=== PATIENT | female | born 2000 | race Caucasian/White ===

== ENCOUNTER 2019-07-29 06:48 | Emergency (ER) | payer OTHER ==
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
[2019-07-29] MEDS ORDERED: BABY ASPIRIN 81 MG CHEW PO ONE (08:51)
[2019-07-29] MEDS ORDERED: BABY ASPIRIN 81 MG CHEW ONE (09:16)
[2019-07-29 09:21] LABS: ALBUMIN 4.4 g/dL (3.5-5.0); ALKALINE PHOSPHATASE 80 U/L (38-126); AMYLASE 43 U/L (30-110); ANION GAP 13.4 MEQ/L (5-15); BLOOD UREA NITROGEN 12 mg/dL (7-17); CHLORIDE 104 mmol/L (98-107); Calcium 9.4 mg/dL (8.4-10.2); Carbon Dioxide 27 mmol/L (22-30); Creatinine 1 0.74 mg/dL (0.52-1.04); Glucose 89 mg/dL (74-106); LIPASE 63 U/L (23-300); Potassium 3.2 mmol/L (3.5-5.1); SGOT/AST 27 U/L (14-36); SGPT/ALT 26 U/L (0-35); SODIUM 141 mmol/L (137-145); Total Protein 7.7 g/dL (6.3-8.2)
[2019-07-29 09:40] LABS: Hematocrit 43.2 % (35-47); Hemoglobin 14.6 gm/dl (12.0-16.0); Mean Cell Volume 83.9 fl (78-100); Mean Corpuscular Hemoglobin 28.3 pg (26-32); Mean Corpuscular Hgb Concent. 33.8 g/dl (32-36); Mean Platelet Volume 13.3 fl (7.5-11.0); Platelet Count 287 K/mm3 (150-450); Red Blood Count 5.15 M/mm3 (4.1-5.4); Red Cell Distribution Width 14.5 % (11.5-14.0); White Blood Count 9.4 K/mm3 (4.0-10.5)
[2019-07-29 10:05] VITALS: O2SAT 100
[2019-07-29 10:08] LABS: Barbiturate,Urine NEGATIVE (NEGATIVE); Benzodiazepine,Urine POSITIVE (NEGATIVE); Cocaine,Urine NEGATIVE (NEGATIVE); Methadone,Urine NEGATIVE (NEGATIVE); Opiate,Urine NEGATIVE (NEGATIVE); PCP,Urine NEGATIVE (NEGATIVE); THC,Urine POSITIVE (NEGATIVE)
[2019-07-29 10:08] LABS: INFLUENZA A NEGATIVE (NEGATIVE); INFLUENZA B NEGATIVE (NEGATIVE); RESPIRATORY SYNCTIAL VIRUS NEGATIVE (Negative)
[2019-07-29 10:09] LABS: Appearance CLOUDY (CLEAR); Bacteria RARE /HPF (NEGATIVE); Bilirubin NEGATIVE (NEGATIVE); Blood NEGATIVE Ery/ul (0-5); Epithelial Cells FEW /HPF (FEW); Glucose NEGATIVE (NEGATIVE); Ketones SMALL (NEGATIVE); Leukocyte Esterase SMALL (NEGATIVE); Mucus MANY /HPF (NEGATIVE); Nitrite NEGATIVE (NEGATIVE); Protein,Urine Dip 30 (Negative); Specific Gravity 1.031 (1.005-1.025); Urobilinogen 4 mg/dL (0-1)
[2019-07-29 10:10] LABS: Budding Yeast Rare /HPF (NEGATIVE); Crystals Unidentified 25-50 /HPF (NEGATIVE)
[2019-07-29] MEDS ORDERED: Rocephin 1000 MG INJ IM ONE (10:12)
[2019-07-29] MEDS ORDERED: Klor Con 10 MEQ PO ONE ×2 (10:16→10:26)
[2019-07-29] MEDS ORDERED: XYLOCAINE 1% HCL 20 ML MDV ONE (10:27)
[2019-07-29] MEDS ORDERED: Rocephin 1000 MG INJ ONE (10:27)
[2019-07-29 10:57] LABS: Amphetamine,Urine POSITIVE (NEGATIVE)
[2019-07-29 11:02] VITALS: BP 84/54; PULSE 101
[2019-07-29 13:06] LABS: ATYPICAL LYMPHS 1 %; BAND 3 % (0.0-2.0); Lymphocytes 21 % (24-44); Monocyte 3 % (0.0-12.0); Neutrophils 72 % (36.0-66.0); Platelet Estimate NORMAL (NORMAL); Total Cells Counted 100
--- NOTE | 2019-07-29 18:14 | XRAY ---
Indication: Chest pain. Comparison: None PA/lateral chest demonstrates normal heart and lungs. Bony thorax intact.
== END 2019-07-29 13:59 | disposition home or self-care (01) ==
LOC: ED 06:48
DX: N39.0 Urinary tract infection, site not specified (principal); F41.9 Anxiety disorder, unspecified; R07.9 Chest pain, unspecified; R06.00 Dyspnea, unspecified; F32.9 Major depressive disorder, single episode, unspecified; E87.6 Hypokalemia
CPT/HCPCS: 36415; 71046; 80053; 80307; 81001; 81025; 82150; 83690; 83880; 84484; 85025; 85379; 86308; 87086; 87631; 87651; 93005; 94760; 96372; 99284; J0696; A9270-GY